=== PATIENT | female | born 1960 | race Caucasian/White ===

== ENCOUNTER → 2016-06-02 | Outpatient (CLI) | payer BC ==
--- NOTE | 2016-06-08 12:25 | MY ---
EXAMINATION: Bilateral digital mammography utilizing CAD. HISTORY: Screening exam. Comparison is made to previous studies dated 03/07/2015, 12/18/2013. FINDINGS: Bilateral heterogeneously dense breast tissue. No suspicious calcifications, masses or ar chitectural distortions. No pathologic appearing lymph nodes, no abnormal skin thickening or nippl e inversion. CAD highlighted regions appear normal at this time. IMPRESSION: BI-RADS category I - negative mammogram. Continued screening according to ACR-ACS gu idelines suggested. THE FALSE-NEGATIVE RATE OF MAMMOGRAM IS APPROXIMATELY 10%. MANAGEMENT OF A PALPABLE ABNORMALITY MUST BE BASED UPON CLINICAL GROUNDS. SENSITIVITY FOR DETECTION OF ABNORMALITIES IN DENSE BREASTS IS LOW. NOTE: A letter will be sent to the patient regarding findings. [facility] -- [place] [phone] - FAX [phone]
== END ==
LOC: MW.MAM 09:50
PROVIDERS: ATTEND Obstetrics & Gynecology
DX: Z12.31 Encounter for screening mammogram for malignant neoplasm of breast (principal); S49.92XA Unspecified injury of left shoulder and upper arm, initial encounter
CPT/HCPCS: G0202; G0202-26